=== PATIENT | male | born 1970 | race Caucasian/White ===

== ENCOUNTER 2017-06-04 05:32 | Day surgery (SDC) | payer OTHER ==
[~2017-06-04] VITALS: Ht 177.8 cm; Wt 149.6 kg
[~2017-06-04 05:32] MED LIST: ADVIL200 MG PO; ALLEGRA-D 241 TABLET PO; PROAIR HFA8.5 GM IH; ZESTRIL2.5 MG PO
[2017-06-04 06:02] VITALS: BP 139/67
[2017-06-04 11:00] VITALS: BP 122/67
[2017-06-04 11:58] VITALS: BP 135/83
== END 2017-06-04 12:09 | disposition home or self-care (01) ==
LOC: SDC 05:32
PROC: 0YB90ZZ Excision of Right Lower Extremity, Open Approach (ICD-10-PCS; principal; 2017-06-04)
DX: M77.31 Calcaneal spur, right foot (principal); M76.61 Achilles tendinitis, right leg; M72.2 Plantar fascial fibromatosis; R26.2 Difficulty in walking, not elsewhere classified; I83.93 Asymptomatic varicose veins of bilateral lower extremities; I10 Essential (primary) hypertension; E66.9 Obesity, unspecified; Z68.42 Body mass index [BMI] 45.0-49.9, adult; E78.5 Hyperlipidemia, unspecified; Z82.49 Family history of ischemic heart disease and other diseases of the circulatory system; Z82.5 Family history of asthma and other chronic lower respiratory diseases
CPT/HCPCS: 73650; 76000; 88304; C1713; J0131; J0330; J0690; J1100; J1885; J2250; J2405; J2710; J2795; J3010; S0020